=== PATIENT | female | born 1935 | race Caucasian/White ===

== ENCOUNTER 2019-05-10 14:18 | Inpatient (IN) | payer MEDICARE, OTHER ==
[~2019-05-10] VITALS: Ht 165.1 cm; Wt 65.3 kg
--- NOTE | 2019-05-10 14:20 | NUR ---
[facility]IB [facility], MORE ALTERED THAN NORMAL. PATIENT NON-VERBAL, NO DISTRESS NOTED, ON O2 AT 2LPM VIA NC WITH SPO2 OF 97%. IV LINE PRESENT ON LEFT HAND G20. ATTACHED TO THE ROUTE AIDE.
[2019-05-10 14:41] LABS: BASOPHILS # (AUTO) 0.1 /CMM (0.0-0.2); BASOPHILS % (AUTO) 0.4 % (0.0-2.0); EOSINOPHILS % (AUTO) 0.1 % (0.0-6.0); HEMATOCRIT 42 % (33-45); HEMOGLOBIN 13.7 g/dL (11.5-14.8); LYMPHOCYTES # (AUTO) 0.6 /CMM (0.8-4.8); LYMPHOCYTES % (AUTO) 2.4 % (20.0-44.0); MEAN CORPUSCULAR HGB CONC 33 g/dl (31.0-36.0); MEAN CORPUSCULAR VOLUME 94 fL (82-100); MONOCYTES # (AUTO) 1.1 /CMM (0.1-1.30); MONOCYTES % (AUTO) 4.5 % (2.0-12.0); NEUTROPHILS # (AUTO) 22.5 /CMM (1.8-8.9); NEUTROPHILS % (AUTO) 92.6 % (43.0-81.0); PLATELET COUNT (AUTO) 235 /CMM (150-450); RED BLOOD CELL COUNT(AUTO) 4.47 MIL/uL (4.0-5.2); WHITE BLOOD COUNT (AUTO) 24.4 K/uL (4.3-11.0)
[2019-05-10] MEDS ORDERED: CYAN-6 IM (14:44)
[2019-05-10] MEDS ORDERED: ACET-868 PO ×2 (14:44)
[2019-05-10] MEDS ORDERED: NA P133E RC (14:44)
[2019-05-10] MEDS ORDERED: ATEN25TA PO (14:44)
[2019-05-10] MEDS ORDERED: MELA3TAB41 PO (14:44)
[2019-05-10] MEDS ORDERED: DOCU50LI PO (14:44)
[2019-05-10] MEDS ORDERED: ANAS1TAB8 PO (14:44)
[2019-05-10] MEDS ORDERED: METF-440 PO (14:44)
[2019-05-10] MEDS ORDERED: BISA5TAB10 PO (14:44)
[2019-05-10] MEDS ORDERED: POLY15DR40 EACHEYE (14:44)
[2019-05-10] MEDS ORDERED: MAGN400O6 PO (14:44)
[2019-05-10] MEDS ORDERED: MAGN400T26 PO (14:44)
[2019-05-10] MEDS ORDERED: FAMO20TA8 PO (14:44)
[2019-05-10] MEDS ORDERED: MULT-447 PO (14:44)
[2019-05-10 14:49] LABS: CALCIUM, SERUM 9.6 mg/dL (8.5-10.1); CARBON DIOXIDE 17 mmol/L (21-32); CHLORIDE 104 mmol/L (98-107); GLUCOSE 183 mg/dL (74-106); POTASSIUM 4.2 mmol/L (3.5-5.1); SODIUM SERUM 143 mmol/L (136-145); UREA NITROGEN, BLOOD 31 mg/dL (7-18)
[2019-05-10 14:54] LABS: APPEARANCE,URINE Cloudy (CLEAR); BILIRUBIN,URINE Negative (NEGATIVE); BLOOD, URINE Moderate Ery/uL (NEGATIVE); COLOR,URINE Yellow (YELLOW); KETONES,URINE Negative (NEGATIVE); LEUKOCYTE ESTERASE ,URINE Small (NEGATIVE); NITRITE, URINE Negative (NEGATIVE); PH,URINE 8.5 (5.0-8.0); PROTEIN,URINE >=300 mg/dl (NEGATIVE); UGLUCOSE Negative (NEGATIVE); UROBILINOGEN,URINE 0.2 EU/dL (0.2)
[2019-05-10 14:55] LABS: ALANINE AMINOTRANSFERASE 55 U/L (12-78); ALBUMIN 2.8 g/dL (3.4-5.0); ALKALINE PHOSPHATASE 103 U/L (46-116); ASPARTATE AMINOTRANSFERASE 92 U/L (15-37); BILIRUBIN,DIRECT 0.4 mg/dL (0.0-0.2); BILIRUBIN,TOTAL 0.7 mg/dL (0.2-1.0); TOTAL PROTEIN, SERUM 6.8 g/dL (6.4-8.2)
[2019-05-10] MEDS ORDERED: ACETAMINOPHEN 650 MG/SUPP.RECT RC ONE ×2 (14:58→15:00)
[2019-05-10] MEDS ORDERED: AZTREONAM 2 G in IV NS 0.9% 100 ML IV ONE (15:00)
[2019-05-10] MEDS ORDERED: VANCOMYCIN 1 GM in IV D5W 250 ML IV ONE (15:00)
[2019-05-10] MEDS ORDERED: IV NS 0.9% 1,000 ML BAG IV ONE ×2 (15:00)
[2019-05-10 15:25] LABS: BACTERIA,URINE Many /HPF (None Seen); SQUAMOUS EPITHELIAL CELL,UR Moderate /HPF (None Seen)
--- NOTE | 2019-05-10 15:29 | NUR ---
TAKEN TO CT.
--- NOTE | 2019-05-10 16:25 | NUR ---
Patient is resting comfortably in bed with eyes closed. Easily aroused. VSS
--- NOTE | 2019-05-10 17:29 | NUR ---
GOT BED 307-2
[2019-05-10] MEDS ORDERED: BISACODYL (5 MG) 5 MG TABLET.DR PO PRN (17:30)
[2019-05-10] MEDS ORDERED: NA PHOS,M-B/NA PHOS,DI-BA 1 EA ENEMA RC PRN (17:30)
[2019-05-10] MEDS ORDERED: FAMOTIDINE (20 MG) 20 MG TABLET PO PRN (17:30)
[2019-05-10] MEDS ORDERED: DEXTROSE 50%-WATER 50 ML DISP.SYRIN IV PRN (18:00)
[2019-05-10] MEDS ORDERED: Z GUARD REMEDY 2 OZ OINT TP PRN (18:00)
[2019-05-10] MEDS ORDERED: ONDANSETRON HCL/PF 4 MG/2 ML VIAL IVP PRN (18:00)
[2019-05-10] MEDS ORDERED: MORPHINE SULFATE INJ 2 MG/ML DISP.SYRIN IV PRN (18:00)
[2019-05-10] MEDS ORDERED: MAG HYDROX/AL HYDROX/SIMETH 30 ML UDC PO PRN (18:00)
[2019-05-10] MEDS ORDERED: HYDROCODONE/APAP 5/325MG 1 EACH TABLET PO PRN (18:00)
--- NOTE | 2019-05-10 18:29 | NUR ---
PATIENT MORE ALERT AND RESPONSIVE TO NAME. TRANSFERRED TO ROOM 307-2 VIA ACLS PROTOCOL. NO DISTRESS NOTED. ENDORSED TO HAYDEE SOLANO FOR NICOLE.
[2019-05-10 18:30] VITALS: BP 119/44
[2019-05-10] MEDS ORDERED: FEE PK DOSING 1 MIN EA MC ONE (18:37)
--- NOTE | 2019-05-10 18:44 | NUR ---
ADMISSION FROM ER PT ADMITTED FROM ER. BROUGHT IN [facility]. PT WITH ADMITTING DX OF SEPSIS. HX OF HTN, KIDNEY STONES, STOMACH CANCER, ANXIETY, CONTRACTURE QAND HLD. VS CHECKED. BP 119/44, P 70, O2 SAT 96%, TEMP 99, RR 20. PT ATTACHED TO MONORAIL CAR OPERATOR. 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 NO CARDIAC OR RESPIRATORY DISTRESS NOTED. PT IS AOX1 ONLY. INCONTINENT OF B/B. IV SITE INTACT AND PATENT NOTED ON R FORE ARM G20, AND L HAND G20. OBTAINED ADMITTING ORDERS FROM ANTOINE HENLEY. WILL ENDORSE TO NEXT SHIFT
[2019-05-10 20:00] VITALS: BP 91/57
[2019-05-10] MEDS: IV NS 0.9% 1,000 ML IV PRN (20:00)
--- NOTE | 2019-05-10 20:00 | NUR ---
RN Notes Received patient, asleep in bed with O2 inhalation at 2LPM via NC. Tele monitor reads Sinus with 1st degree AV block, HR 78. 2 IV access patent and intact. No signs of distress and discomfort noted. Skin and body assessment done with pictures taken and filed in the chart. All admission orders noted and carried out. Safety measures and fall precaution in place. Kept comfortable in bed. Will continue to monitor.
[2019-05-10] MEDS ORDERED: AZTREONAM 1 G in IV NS 0.9% 100 ML IV SCH (21:00)
[2019-05-10] MEDS: MEROPENEM 500 MG in IV NS 0.9% 100 ML IV SCH (21:51)
[2019-05-10] MEDS: BLOOD SUGAR DIAGNOSTIC 1 EACH STRIP IN SCH (22:07)
[2019-05-11] VITALS: BP 94/45
[2019-05-11 04:00] VITALS: BP 95/50
[2019-05-11 06:00] VITALS: BP 95/50
[2019-05-11 06:20] LABS: EOSINOPHILS % (AUTO) 0.2 % (0.0-6.0); HEMATOCRIT 35 % (33-45); HEMOGLOBIN 11.6 g/dL (11.5-14.8); LYMPHOCYTES # (AUTO) 1.2 /CMM (0.8-4.8); LYMPHOCYTES % (AUTO) 4.6 % (20.0-44.0); MEAN CORPUSCULAR HGB CONC 33 g/dl (31.0-36.0); MEAN CORPUSCULAR VOLUME 93 fL (82-100); MONOCYTES # (AUTO) 1.6 /CMM (0.1-1.30); MONOCYTES % (AUTO) 6.1 % (2.0-12.0); NEUTROPHILS # (AUTO) 23.4 /CMM (1.8-8.9); NEUTROPHILS % (AUTO) 89.1 % (43.0-81.0); PLATELET COUNT (AUTO) 171 /CMM (150-450); RED BLOOD CELL COUNT(AUTO) 3.81 MIL/uL (4.0-5.2); WHITE BLOOD COUNT (AUTO) 26.3 K/uL (4.3-11.0)
[2019-05-11] MEDS: BLOOD SUGAR DIAGNOSTIC 1 EACH STRIP IN SCH ×4 (06:34→21:46)
--- NOTE | 2019-05-11 07:00 | NUR ---
RN Notes Patient stable overnight, vital signs stable, afebrile. Patient appears weak and lethargic. No signs of distress and discomfort. Kept attended. Will continue to monitor and will endorse accordingly.
[2019-05-11 07:06] LABS: ALANINE AMINOTRANSFERASE 58 U/L (12-78); ALBUMIN 2.3 g/dL (3.4-5.0); ALKALINE PHOSPHATASE 63 U/L (46-116); ASPARTATE AMINOTRANSFERASE 72 U/L (15-37); BILIRUBIN,TOTAL 0.6 mg/dL (0.2-1.0); CALCIUM, SERUM 8.4 mg/dL (8.5-10.1); CARBON DIOXIDE 20 mmol/L (21-32); CHLORIDE 108 mmol/L (98-107); GLUCOSE 146 mg/dL (74-106); MAGNESIUM 2.6 mg/dL (1.8-2.4); PHOSPHORUS 4.9 mg/dL (2.5-4.9); POTASSIUM 4.2 mmol/L (3.5-5.1); SODIUM SERUM 143 mmol/L (136-145); UREA NITROGEN, BLOOD 42 mg/dL (7-18)
[2019-05-11 07:16] LABS: CHOLESTEROL 81 mg/dL (<200); HDL CHOLESTEROL 25 mg/dL (40-60); LDL 28 mg/dL (0-99); THYROID STIMULATING HORMONE 1.524 uIU/mL (0.358-3.74); TRIGLYCERIDES 182 mg/dL (30-150)
[2019-05-11 08:00] VITALS: BP 121/58
--- NOTE | 2019-05-11 08:30 | NUR ---
SUSPENDER MAKER NOTES CALL RECEIVED FROM LAB REPORTING LACTIC ACID OF 4.3 TRENDING DOWN. AND PROCALCITONIN OF 164.04 TRENDING DOWN. RADHA STUDIO ASSISTANT MADE AWARE NO ORDERS RECEIVED. WILL CONTINUE TO MONITOR.
[2019-05-11] MEDS: ANASTROZOLE 1 MG TABLET PO SCH (09:00)
[2019-05-11] MEDS: DOCUSATE SODIUM 100 MG CAPSULE PO SCH ×2 (09:00→17:00)
[2019-05-11] MEDS: MULTIVIT W/MINERALS 1 TAB TABLET PO SCH (09:00)
[2019-05-11] MEDS: ATENOLOL 25 MG TABLET PO SCH (09:00)
[2019-05-11] MEDS: POLYVINYL ALCOHOL 15 ML BOTTLE EACHEYE SCH (09:15)
[2019-05-11] MEDS: MEROPENEM 500 MG in IV NS 0.9% 100 ML IV SCH ×2 (09:15→20:38)
--- NOTE | 2019-05-11 10:19 | NUR ---
WOUND CARE CONSULT: PT PRESENTS WITH BREASTFOLD RASH, SCARRING TO LOWER BACK, SACRAL AREA EXTENDING TO BUTTOCKS AND OPEN WOUND TO RT DORSAL FOOT, PRESENT ON ADMISSION. RECOMMENDATIONS MADE FOR SKIN PROTECTION AND SKIN CARE. RECOMMEND DPM CONSULT. DR PEREZ NOTIFIED OF DPM CONSULT REQUEST. ROSA ISOFLEX LOW AIRLOSS BED TO BE PLACED. WILL SEE PRN. [place] IN AGREEMENT WITH PLAN OF CARE. CURRENT SUMMER SCORE IS 12. Addendum: 05/11/19 at 1021 by LORA BUSCH WNDNU Amended: Links added.
[2019-05-11] MEDS: MUPIROCIN OINT 2% 22 GM TUBE TP SCH ×2 (13:33→20:52)
[2019-05-11 16:00] VITALS: BP 116/46
[2019-05-11] MEDS: VANCOMYCIN 0.75 GM in IV D5W 250 ML IV SCH (17:04)
[2019-05-11] MEDS: CLOTRIMAZOLE 1% 15 GM TUBE TP SCH (17:05)
[2019-05-11] MEDS: IV NS 0.9% 1,000 ML IV PRN (18:50)
--- NOTE | 2019-05-11 18:53 | NUR ---
SAND TECHNOLOGIST NOTES PATIENT IN BED RESTING NO SOB OR ACUTE DISTRESS NOTED. NO ACUTE CHANGES NOTED DURING SHIFT. PATIENT NPO DUE TO ALTERED MENTAL STATUS AND LETHARGY. REMAINS ALTERED MENTALLY AND WEAK. ALL NEEDS MET. ALL DUE MEDICATIONS ADMINISTERED. WILL ENDORSE CARE TO PM SHIFT.
[2019-05-11 20:00] VITALS: BP 103/48
--- NOTE | 2019-05-11 20:10 | NUR ---
RN NOTES PM SHIFT PATIENT ALERT AND ORIENTED X1, 2LPM VIA NC, NON VERBAL AT TIMES, LETHARGIC, ASPIRATION PRECAUTION, NPO TILL SEEN BY SPEECH THERAPIST, RN TO PERFORM INITIAL ST EVAL, KEPT SAFE, WILL CONTINUE TO MONITOR.
[2019-05-11] MEDS: INSULIN REGULAR, HUMAN 100 UNIT/ML 3 ML VIAL SQ PRN (21:46)
[2019-05-12] VITALS: BP 136/62
--- NOTE | 2019-05-12 06:27 | NUR ---
RN NOTES PM SHIFT PATIENT ALERT AND ORIENTED X1, LETHARGIC, AROUSEABLE BY VOICE AND TACTILE STIMULATION, ON 2LPM VIA NC, STABLE VS, REMAINED NPO, SOFT BM X1, PROVIDED GOOD PERINEAL CARE, BACTROBAN OINTMENT TO WOUND, CONTINUE IV ATB, AND IV HYDRATION
[2019-05-12] MEDS: IV NS 0.9% 1,000 ML IV PRN (06:56)
[2019-05-12 07:04] LABS: BASOPHILS % (AUTO) 0.2 % (0.0-2.0); EOSINOPHILS % (AUTO) 0.9 % (0.0-6.0); HEMATOCRIT 35 % (33-45); HEMOGLOBIN 11.3 g/dL (11.5-14.8); LYMPHOCYTES # (AUTO) 1.1 /CMM (0.8-4.8); LYMPHOCYTES % (AUTO) 6.8 % (20.0-44.0); MEAN CORPUSCULAR HGB CONC 33 g/dl (31.0-36.0); MEAN CORPUSCULAR VOLUME 95 fL (82-100); MONOCYTES # (AUTO) 1.1 /CMM (0.1-1.30); MONOCYTES % (AUTO) 6.8 % (2.0-12.0); NEUTROPHILS # (AUTO) 13.9 /CMM (1.8-8.9); NEUTROPHILS % (AUTO) 85.3 % (43.0-81.0); PLATELET COUNT (AUTO) 149 /CMM (150-450); RED BLOOD CELL COUNT(AUTO) 3.67 MIL/uL (4.0-5.2); WHITE BLOOD COUNT (AUTO) 16.3 K/uL (4.3-11.0)
[2019-05-12 07:20] LABS: CALCIUM, SERUM 8.7 mg/dL (8.5-10.1); CREATININE 1.3 mg/dL (0.6-1.3); POTASSIUM 3.9 mmol/L (3.5-5.1)
[2019-05-12] MEDS: BLOOD SUGAR DIAGNOSTIC 1 EACH STRIP IN SCH ×4 (07:27→21:16)
[2019-05-12] MEDS: INSULIN REGULAR, HUMAN 100 UNIT/ML 3 ML VIAL SQ PRN ×2 (07:28→17:54)
--- NOTE | 2019-05-12 07:31 | NUR ---
TELE/RN OPENING NOTES RECEIVED PATIENT ALERT AND ORIENTED X1, LETHARGIC, AROUSABLE BY VOICE AND TACTILE STIMULATION, ON 2LPM VIA NC, STABLE VS, REMAINED NPO, SOFT BM X1, PROVIDED GOOD PERINEAL CARE, BACTROBAN OINTMENT TO WOUND, CONTINUE IV ATB, AND IV HYDRATION. BED IN LOWEST POSITION AND LOCKED. SIDE RAILS UP X2. WILL CONTINUE TO MONITOR.
[2019-05-12 08:00] VITALS: BP 131/64
--- NOTE | 2019-05-12 08:21 | NUR ---
TELE/RN NOTES PATIENT ORAL MEDS IS ON HOLD UNTIL ST EVAL IS CLEAR PER MED.
[2019-05-12] MEDS: MEROPENEM 500 MG in IV NS 0.9% 100 ML IV SCH ×2 (08:52→21:14)
[2019-05-12] MEDS: POLYVINYL ALCOHOL 15 ML BOTTLE EACHEYE SCH (08:59)
[2019-05-12] MEDS: DOCUSATE SODIUM 100 MG CAPSULE PO SCH ×2 (09:00→17:00)
[2019-05-12] MEDS: ATENOLOL 25 MG TABLET PO SCH (09:00)
[2019-05-12] MEDS: MULTIVIT W/MINERALS 1 TAB TABLET PO SCH (09:00)
[2019-05-12] MEDS: ANASTROZOLE 1 MG TABLET PO SCH (09:00)
--- NOTE | 2019-05-12 09:00 | NUR ---
MS/RN NOTES PATIENT IS ON MEDICAL SURGICAL PER MED ORDER.
[2019-05-12] MEDS: MUPIROCIN OINT 2% 22 GM TUBE TP SCH ×2 (09:04→21:16)
[2019-05-12] MEDS: CLOTRIMAZOLE 1% 15 GM TUBE TP SCH ×2 (09:05→17:00)
[2019-05-12 09:53] LABS: BAND % (MANUAL) 7 % (0.0-5.0); LYMPHOCYTES % (MANUAL) 3 % (16-48); MONOCYTES % (MANUAL) 5 % (0-11.0); MYELOCYTES % 1 % (0-0); NEUTROPHILS % (MANUAL) 84 (42-76)
--- NOTE | 2019-05-12 12:00 | NUR ---
MS/RN NOTES BLOOD SUGAR 94MG/DL NO COVERAGE.
--- NOTE | 2019-05-12 14:24 | NUR ---
MS/RN NOTES PATIENT IS STILL WAITING FOR ST EVAL MADE IS AWARE.
[2019-05-12 16:00] VITALS: BP 138/47
[2019-05-12] MEDS: VANCOMYCIN 0.75 GM in IV D5W 250 ML IV SCH (16:32)
--- NOTE | 2019-05-12 18:24 | NUR ---
MS/RN CLOSING NOTES' PATIENT IS ALERT ORIENTED X1-2. NO RESPIRATORY DISTRESS NOTED. NC IN PLACED AT 2L/MIN WITH O2 96%. RESPIRATION REGULAR AND UNLABORED. IVF OF NS 1L AT 75ML/HR ON AND INFUSING WELL. TURN PATIENT FROM SIDE TO SIDE. KEPT PATIENT CLEAN AND DRY AT ALL TIMES. SEEN AND EXAMINED BY MD WITH ORDERS MADE AND CARRIED OUT. BED IN LOWEST POSITION. SIDE RAILS UP X2. CALL LIGHT WITHIN REACH. WILL ENDORSED TO DOCUMENTATION COORDINATOR FOR CONTINUITY OF CARE.
--- NOTE | 2019-05-12 19:30 | NUR ---
RN NOTES RECEIVED PT. AWAKE ON BED, A/OX1, NOT IN DISTRESS, NO SOB, CALL LIGHT WITHIN REACH, [id number], CONTINUE TO MONITOR
[2019-05-12 20:00] VITALS: BP 98/53
[2019-05-12 21:25] VITALS: BP 136/60
--- NOTE | 2019-05-12 21:50 | NUR ---
RN NOTES INFORMED DR. OMALLEY THAT PATIENT IS NPO FOR ST EVAL AND PT BLOOD SUGAR IS 92.. PT'S IV FLUID IS NS RUNNING @ 75 ML/H... DR. OMALLEY CHANGE IT TO D5NS WITH SAME RATE,,ORDER NOTED AND CARRIED OUT
[2019-05-12] MEDS ORDERED: IV D5/ 0.9% NACL 1,000 ML IV SCH (23:00)
--- NOTE | 2019-05-13 06:11 | NUR ---
RN NOTES AWAKE, MORNING CARE RENDERED, NOT IN DISTRESS, NO PAIN NOTED, CALL LIGHT WITHIN REACH, [id number], PT. NEEDS ATTENDED
[2019-05-13] MEDS: BLOOD SUGAR DIAGNOSTIC 1 EACH STRIP IN SCH ×4 (06:40→22:21)
[2019-05-13 07:08] LABS: BASOPHILS % (AUTO) 0.1 % (0.0-2.0); EOSINOPHILS % (AUTO) 0.1 % (0.0-6.0); HEMATOCRIT 33 % (33-45); HEMOGLOBIN 10.9 g/dL (11.5-14.8); LYMPHOCYTES # (AUTO) 0.6 /CMM (0.8-4.8); LYMPHOCYTES % (AUTO) 4.8 % (20.0-44.0); MEAN CORPUSCULAR HGB CONC 33 g/dl (31.0-36.0); MEAN CORPUSCULAR VOLUME 94 fL (82-100); MONOCYTES # (AUTO) 0.6 /CMM (0.1-1.30); MONOCYTES % (AUTO) 4.2 % (2.0-12.0); NEUTROPHILS # (AUTO) 12.3 /CMM (1.8-8.9); NEUTROPHILS % (AUTO) 90.8 % (43.0-81.0); PLATELET COUNT (AUTO) 139 /CMM (150-450); RED BLOOD CELL COUNT(AUTO) 3.57 MIL/uL (4.0-5.2); WHITE BLOOD COUNT (AUTO) 13.5 K/uL (4.3-11.0)
[2019-05-13 07:26] LABS: CALCIUM, SERUM 8.3 mg/dL (8.5-10.1); CARBON DIOXIDE 24 mmol/L (21-32); CHLORIDE 116 mmol/L (98-107); CREATININE 0.8 mg/dL (0.6-1.3); GLUCOSE 140 mg/dL (74-106); POTASSIUM 3.3 mmol/L (3.5-5.1); SODIUM SERUM 151 mmol/L (136-145); UREA NITROGEN, BLOOD 49 mg/dL (7-18)
[2019-05-13 08:00] VITALS: BP 149/85
[2019-05-13] MEDS ORDERED: POTASSIUM CHLORIDE 20 MEQ TAB.PRT.SR PO ONE (08:00)
--- NOTE | 2019-05-13 08:55 | NUR ---
MS/RN NOTES RN ASSESSED FOR SWALLOWING. PATIENT CAN SWALLOW AND TOLERATE FOOD WITHOUT DIFFICULTY SWALLOWING MD IS AWARE.
[2019-05-13] MEDS: DOCUSATE SODIUM 100 MG CAPSULE PO SCH ×2 (08:59→17:01)
[2019-05-13] MEDS: MULTIVIT W/MINERALS 1 TAB TABLET PO SCH (08:59)
[2019-05-13] MEDS: ATENOLOL 25 MG TABLET PO SCH (09:00)
[2019-05-13] MEDS: ANASTROZOLE 1 MG TABLET PO SCH (09:00)
[2019-05-13] MEDS: POLYVINYL ALCOHOL 15 ML BOTTLE EACHEYE SCH (09:00)
[2019-05-13] MEDS: CLOTRIMAZOLE 1% 15 GM TUBE TP SCH ×2 (09:01→17:01)
[2019-05-13] MEDS: MUPIROCIN OINT 2% 22 GM TUBE TP SCH ×2 (09:01→20:54)
[2019-05-13] MEDS: MEROPENEM 500 MG in IV NS 0.9% 100 ML IV SCH ×2 (09:05→20:54)
[2019-05-13] MEDS: Potassium Chloride 10 MEQ in IV D5/0.45 NACL 1,000 ML IV PRN (10:30)
[2019-05-13 16:00] VITALS: BP 148/65
[2019-05-13] MEDS: INSULIN REGULAR, HUMAN 100 UNIT/ML 3 ML VIAL SQ PRN (17:07)
--- NOTE | 2019-05-13 17:17 | NUR ---
MS/RN NOTES BLOOD SUGAR 147MG/DL 2U INSULIN WAS ADMINISTERED
--- NOTE | 2019-05-13 19:31 | NUR ---
MS/RN NOTES MS/RN CLOSING NOTES PATIENT IS ALERT AND ORIENTED X2. PATIENT DENIES PAIN AT THIS TIME. PATIENT ATE HER LUNCH WITHOUT DIFFICULTY SWALLOWING. NO RESPIRATORY DISTRESS NOTED. SEEN AND EXAMINED BY MD WITH ORDERS AND CARRIED OUT. BED IN LOWEST POSITION AND LOCKED. SIDE RAILS UP X2. CALL LIGHT WITHIN REACH. WILL ENDORSED TO BLADE BALANCER FOR NICOLE.
--- NOTE | 2019-05-13 19:45 | NUR ---
MS RN OPENING NOTES PATIENT RECEIVED RESTING IN BED A/O X 1. ON 2L OF O2 VIA NC WITH BREATHING EVEN AND UNLABORED, NO SOB NOTED. NO SIGNS OF ACUTE DISTRESS. NO COMPLAINTS OF PAIN OR DISCOMFORT, NO FACIAL GRIMACING NOTED. SAFETY PRECAUTIONS IN PLACE WITH CALL LIGHT WITHIN REACH, BED IN LOWEST POSITION, SIDE RAILS UP X2, AND LOCKED. WILL CONTINUE TO MONITOR.
[2019-05-13 20:00] VITALS: BP 155/63
[2019-05-14 00:25] VITALS: BP 152/63
[2019-05-14 04:00] VITALS: BP 174/75
[2019-05-14] MEDS: BLOOD SUGAR DIAGNOSTIC 1 EACH STRIP IN SCH ×4 (06:40→21:53)
--- NOTE | 2019-05-14 06:59 | NUR ---
MS RN CLOSING NOTES PATIENT CURRENTLY RESTING IN BED A/O X2. ON 2L OF O2 VIA NC BREATHING EVEN AND UNLABORED, NO SOB NOTED. NO SIGNS OF ACUTE DISTRESS. NO COMPLAINTS OR PAIN OR DISCOMFORT. IV LOCATED ON L HAND #20. PATIENT WAS KEPT CLEAN AND DRY THROUGHOUT THE NIGHT- ALL NEEDS ATTENDED TO. SAFETY PRECAUTION IN PLACE WITH BED IN LOWEST POSITION, CALL LIGHT WITHIN REACH, BREAKS ON, AND SIDE RAILS UP X 2. WILL ENDORSE TO ONCOMING SHIFT ABOUT NICOLE.
[2019-05-14] MEDS: INSULIN REGULAR, HUMAN 100 UNIT/ML 3 ML VIAL SQ PRN ×3 (07:16→21:54)
[2019-05-14 07:35] LABS: BASOPHILS % (AUTO) 0.1 % (0.0-2.0); EOSINOPHILS % (AUTO) 0.4 % (0.0-6.0); HEMATOCRIT 35 % (33-45); HEMOGLOBIN 11.2 g/dL (11.5-14.8); LYMPHOCYTES # (AUTO) 0.7 /CMM (0.8-4.8); LYMPHOCYTES % (AUTO) 12.3 % (20.0-44.0); MEAN CORPUSCULAR HGB CONC 33 g/dl (31.0-36.0); MEAN CORPUSCULAR VOLUME 93 fL (82-100); MONOCYTES # (AUTO) 0.4 /CMM (0.1-1.30); NEUTROPHILS # (AUTO) 4.7 /CMM (1.8-8.9); NEUTROPHILS % (AUTO) 80.2 % (43.0-81.0); PLATELET COUNT (AUTO) 133 /CMM (150-450); WHITE BLOOD COUNT (AUTO) 5.9 K/uL (4.3-11.0)
[2019-05-14] MEDS: Potassium Chloride 10 MEQ in IV D5/0.45 NACL 1,000 ML IV PRN (07:37)
--- NOTE | 2019-05-14 07:39 | NUR ---
MS RN OPENING NOTES RECEIVED PT AWAKE IN BED ON NO ACUTE SIGNS OF DISTRESS. HOB ELEVATED. A/O X 2. ABLE TO RESPONSE TO SIMPLE CONVERSATION, DENIES PAIN OR ANY DISCOMFORTS AT THIS TIME. CONTACT PRECAUTIONS FOR ESBL URINE IN PLACE. ON O2 VIA N/C @ 2LPM, TOLERATING WELL WITH NO SOB NOTED. IV ACCESS ON LEFT HAND INTACT AND PATENT, IVF RUNNING ORDERED, NO S/S OF INFILTRATIONS AT SITE NOTED. SAFETY PRECAUTIONS IN PLACE: CALL LIGHT WITHIN REACH, BED IN LOWEST POSITION AND LOCKED WITH SIDE RAILS UP X2. WILL CONTINUE TO MONITOR.
[2019-05-14 07:52] LABS: BILIRUBIN,TOTAL 1.7 mg/dL (0.2-1.0); CALCIUM, SERUM 8.5 mg/dL (8.5-10.1); CREATININE 0.8 mg/dL (0.6-1.3); MAGNESIUM 2.5 mg/dL (1.8-2.4); PHOSPHORUS 1.9 mg/dL (2.5-4.9); POTASSIUM 3.4 mmol/L (3.5-5.1); TOTAL PROTEIN, SERUM 5.8 g/dL (6.4-8.2)
[2019-05-14 08:00] VITALS: BP 173/70
[2019-05-14] MEDS: DOCUSATE SODIUM 100 MG CAPSULE PO SCH ×2 (08:44→18:08)
[2019-05-14] MEDS: MULTIVIT W/MINERALS 1 TAB TABLET PO SCH (08:44)
[2019-05-14] MEDS: ATENOLOL 25 MG TABLET PO SCH (08:45)
[2019-05-14] MEDS: CLOTRIMAZOLE 1% 15 GM TUBE TP SCH ×2 (08:54→18:09)
[2019-05-14] MEDS: MEROPENEM 500 MG in IV NS 0.9% 100 ML IV SCH ×2 (08:54→20:36)
[2019-05-14] MEDS: POLYVINYL ALCOHOL 15 ML BOTTLE EACHEYE SCH (08:55)
[2019-05-14] MEDS: MUPIROCIN OINT 2% 22 GM TUBE TP SCH ×2 (08:55→20:52)
[2019-05-14] MEDS: ANASTROZOLE 1 MG TABLET PO SCH (09:35)
[2019-05-14 12:09] LABS: LYMPHOCYTES % (MANUAL) 13 % (16-48); MONOCYTES % (MANUAL) 2 % (0-11.0); NEUTROPHILS % (MANUAL) 85 (42-76)
[2019-05-14] MEDS ORDERED: POTASSIUM CHLORIDE 20 MEQ TAB.PRT.SR PO ONE (12:30)
[2019-05-14] MEDS ORDERED: CLONIDINE HCL 0.1 MG TABLET PO PRN (12:30)
[2019-05-14] MEDS ORDERED: K PHOS NEUTRAL 250 MG TABLET PO ONE (13:00)
[2019-05-14] MEDS: Potassium Chloride 10 MEQ in IV D5W 1,000 ML IV PRN (13:45)
[2019-05-14] MEDS: VALSARTAN 80 MG TABLET PO SCH (13:59)
[2019-05-14 16:00] VITALS: BP 157/76
--- NOTE | 2019-05-14 19:01 | NUR ---
MS RN CLOSING NOTES PT IN BED AWAKE AND LYING AT SEMI-RIVAS'S POSITION. A/O X 2, SAME VERBALLY RESPONSIVE. FAMILY VISITED DURING THE DAY. CONTACT PRECAUTIONS FOR ESBL URINE IN PLACE. ON O2 VIA N/C @ 2LPM, TOLERATING WELL WITH NO SOB NOTED THROUGHOUT THE DAY. IV ACCESS ON LEFT HAND INTACT AND PATENT, IVF OF D5W WITH 10KCL 10MEQ INFUSING AT 75ML/HR, NO S/S OF INFILTRATIONS AT SITE NOTED. PT TURNED AND REPOSITIONED Q 2HRS AND PRN. KEPT CLEAN, DRY AND COMFORTABLE. SAFETY PRECAUTIONS IN PLACE: CALL LIGHT WITHIN REACH, BED IN LOWEST POSITION AND LOCKED WITH SIDE RAILS UP X2. ALL NEEDS AND CARE PROVIDED WELL. ENDORSED TO ROD FILLER NURSE CASTRO FOR NICOLE. .
--- NOTE | 2019-05-14 19:52 | NUR ---
MS RN OPENING NOTES PATIENT RECEIVED RESTING IN BED A/O X 2. ON 2L OF O2 VIA NC WITH BREATHING EVEN AND UNLABORED, NO SOB NOTED. NO SIGNS OF ACUTE DISTRESS. NO COMPLAINTS OF PAIN OR DISCOMFORT, NO FACIAL GRIMACING NOTED. SAFETY PRECAUTIONS IN PLACE WITH CALL LIGHT WITHIN REACH, BED IN LOWEST POSITION, SIDE RAILS UP X2, AND LOCKED. WILL CONTINUE TO MONITOR.
[2019-05-14 20:00] VITALS: BP 167/67
[2019-05-14] MEDS: ACETAMINOPHEN 325 MG TABLET PO PRN (20:37)
--- NOTE | 2019-05-14 20:53 | NUR ---
MS RN NOTES TYLENOL PRN ADMINISTERED TO PATIENT DUE TO MILD PAIN. WILL CONTINUE TO MONITOR.
[2019-05-14 21:40] VITALS: BP 150/62
[2019-05-15] MEDS: Potassium Chloride 10 MEQ in IV D5W 1,000 ML IV PRN (06:19)
[2019-05-15] MEDS: BLOOD SUGAR DIAGNOSTIC 1 EACH STRIP IN SCH ×3 (06:37→16:57)
[2019-05-15] MEDS: INSULIN REGULAR, HUMAN 100 UNIT/ML 3 ML VIAL SQ PRN ×3 (06:39→16:59)
--- NOTE | 2019-05-15 06:50 | NUR ---
MS RN CLOSING NOTES PATIENT CURRENTLY RESTING IN BED A/O X2. ON 2L OF O2 VIA NC BREATHING EVEN AND UNLABORED, NO SOB NOTED. NO SIGNS OF ACUTE DISTRESS. NO COMPLAINTS OR PAIN OR DISCOMFORT. IV LOCATED ON L HAND #20. PATIENT WAS KEPT CLEAN AND DRY THROUGHOUT THE NIGHT- ALL NEEDS ATTENDED TO. SAFETY PRECAUTION IN PLACE WITH BED IN LOWEST POSITION, PATIENT WAS TURNED AND REPOSITIONED Q2H. CALL LIGHT WITHIN REACH, BREAKS ON, AND SIDE RAILS UP X 2. WILL ENDORSE TO ONCOMING SHIFT ABOUT NICOLE.
[2019-05-15 07:14] LABS: CALCIUM, SERUM 8.2 mg/dL (8.5-10.1); CREATININE 0.6 mg/dL (0.6-1.3); PHOSPHORUS 2.1 mg/dL (2.5-4.9); POTASSIUM 3.4 mmol/L (3.5-5.1)
[2019-05-15 07:20] LABS: BASOPHILS % (AUTO) 0.3 % (0.0-2.0); EOSINOPHILS % (AUTO) 2.1 % (0.0-6.0); HEMATOCRIT 33 % (33-45); HEMOGLOBIN 11.2 g/dL (11.5-14.8); LYMPHOCYTES # (AUTO) 0.8 /CMM (0.8-4.8); LYMPHOCYTES % (AUTO) 18.3 % (20.0-44.0); MEAN CORPUSCULAR HGB CONC 33 g/dl (31.0-36.0); MEAN CORPUSCULAR VOLUME 92 fL (82-100); MONOCYTES # (AUTO) 0.5 /CMM (0.1-1.30); MONOCYTES % (AUTO) 11.7 % (2.0-12.0); NEUTROPHILS # (AUTO) 3.1 /CMM (1.8-8.9); NEUTROPHILS % (AUTO) 67.6 % (43.0-81.0); PLATELET COUNT (AUTO) 144 /CMM (150-450); RED BLOOD CELL COUNT(AUTO) 3.63 MIL/uL (4.0-5.2); WHITE BLOOD COUNT (AUTO) 4.6 K/uL (4.3-11.0)
[2019-05-15 08:00] VITALS: BP 180/83
[2019-05-15] MEDS: MULTIVIT W/MINERALS 1 TAB TABLET PO SCH (08:14)
[2019-05-15] MEDS: DOCUSATE SODIUM 100 MG CAPSULE PO SCH ×2 (08:14→16:53)
[2019-05-15] MEDS: ACETAMINOPHEN 325 MG TABLET PO PRN ×2 (08:14→19:18)
[2019-05-15] MEDS: MEROPENEM 500 MG in IV NS 0.9% 100 ML IV SCH (08:14)
[2019-05-15] MEDS: CLOTRIMAZOLE 1% 15 GM TUBE TP SCH ×2 (08:22→16:57)
[2019-05-15] MEDS: MUPIROCIN OINT 2% 22 GM TUBE TP SCH (08:22)
[2019-05-15] MEDS: ANASTROZOLE 1 MG TABLET PO SCH (08:34)
[2019-05-15] MEDS: ATENOLOL 25 MG TABLET PO SCH (08:34)
[2019-05-15] MEDS: POLYVINYL ALCOHOL 15 ML BOTTLE EACHEYE SCH (08:34)
[2019-05-15] MEDS: VALSARTAN 80 MG TABLET PO SCH (08:34)
[2019-05-15] MEDS ORDERED: VALS80TA2 PO (12:51)
[2019-05-15] MEDS ORDERED: MERO500V23 IV (12:51)
[2019-05-15] MEDS ORDERED: CLON0.1T14 PO (12:51)
[2019-05-15] MEDS ORDERED: K PHOS NEUTRAL 250 MG TABLET PO ONE (13:00)
[2019-05-15 16:00] VITALS: BP 101/62
[2019-05-15 19:18] VITALS: BP 176/68
--- NOTE | 2019-05-15 19:29 | NUR ---
MS RN CLOSING NOTES PT REMAINS IN BED,AWAKE, A/OX2-3. PT ON SUPPLEMENTARY OXYGEN AT 2LPM VIA NC, WITH NO ACUTE RESPIRATORY DISTRESS NOTED. PT PREFERS TO HAVE TYLENOL BEFORE GETTING DISCHARGE, GIVEN ORDERED FOR MILD PAIN. PIV R HAND G20, FLUSHED WITH NS, INTACT AND OPERATIONAL; PIV NOT REMOVED PT TO CONTINUE IV MER[facility] AT [facility] TONIGHT. PT KEPT COMFORTABLE IN BED. ALL NEEDS AND CARE ATTEDED. VITALS TAKEN, BP HIGH, PRN CLONIDINE GIVEN ORDERED. PT'S BED IN LOWEST, LOCKED POSITION WITH SRX3. CALL LIGHT KEPT WITHIN REACH. ENDORSED TO CUSHION STUFFER NURSE FOR CONTINUATION OF DISCHARGE. ALL DISCHARGE PAPERS PREPARED AND SIGNED.
--- NOTE | 2019-05-15 19:45 | NUR ---
MS MEDICAL MANAGEMENT TRAINER NOTES PATIENT DISCHARGED IN STABLE CONDITION TO [facility]. A/OX2-3. ON 2L NC. NO S/S OF ACUTE RESPIRATORY DISTRESS AND NO COMPLAINTS OF PAIN. IV REMAINS PRESENT ON LEFT HAND, SIZE 20, INTACT & PATENT, HEP LOCKED. BELONGINGS LIST SIGNED, DISCHARGE INSTRUCTIONS COMPLETED AND SENT WITH PATIENT. ID BAND REMOVED.
[2019-05-16] MEDS ORDERED: CYANOCOBALAMIN 1,000 MCG/ML VIAL IM SCH (09:00)
== END 2019-05-15 19:50 | DRG 871 ==
LOC: ER 14:19 → TELE 18:00 → MED 05-12 09:03
PROVIDERS: ADMIT Nurse Practitioner Acute Care; ATTEND Nurse Practitioner Acute Care
DX: A41.9 Sepsis, unspecified organism (principal); G93.41 Metabolic encephalopathy; N17.0 Acute kidney failure with tubular necrosis; E44.0 Moderate protein-calorie malnutrition; E87.2 Acidosis; E87.0 Hyperosmolality and hypernatremia; D68.59 Other primary thrombophilia; L03.115 Cellulitis of right lower limb; N13.2 Hydronephrosis with renal and ureteral calculous obstruction; E78.5 Hyperlipidemia, unspecified; R65.20 Severe sepsis without septic shock; I10 Essential (primary) hypertension; Z87.440 Personal history of urinary (tract) infections; Z87.442 Personal history of urinary calculi; Z85.028 Personal history of other malignant neoplasm of stomach; F41.9 Anxiety disorder, unspecified; M62.40 Contracture of muscle, unspecified site; Z88.0 Allergy status to penicillin; Z88.2 Allergy status to sulfonamides; Z91.048 Other nonmedicinal substance allergy status; Z79.84 Long term (current) use of oral hypoglycemic drugs; Z79.899 Other long term (current) drug therapy; Z79.811 Long term (current) use of aromatase inhibitors; R13.12 Dysphagia, oropharyngeal phase; I70.0 Atherosclerosis of aorta; E83.41 Hypermagnesemia; E87.6 Hypokalemia; E11.621 Type 2 diabetes mellitus with foot ulcer; L97.519 Non-pressure chronic ulcer of other part of right foot with unspecified severity; D63.8 Anemia in other chronic diseases classified elsewhere; K56.41 Fecal impaction; E83.39 Other disorders of phosphorus metabolism; Z74.09 Other reduced mobility; M62.84 Sarcopenia; B96.20 Unspecified Escherichia coli [E. coli] as the cause of diseases classified elsewhere
CPT/HCPCS: 36415; 70450-TC; 71045-TC; 80048-TC; 80053-TC; 80061-TC; 80076-TC; 80202-TC; 81000-TC; 82962-TC; 83605-TC; 83735-TC; 84100-TC; 84443-TC; 84484-TC; 85025-TC; 85730-TC; 87040-TC; 87070-TC; 87081-TC; 87086-TC; 87186-TC; 92611-TC; G0378; J1815; J2185; J3370; J3420; J3480; J3490; J7030; J7040; J7042; J7050; J7060; J7070